=== PATIENT | female | born 1990 | race Caucasian/White ===

== ENCOUNTER 2016-06-03 14:38 | Emergency (ER) | payer OTHER ==
[~2016-06-03] VITALS: Wt 85.0 kg
[~2016-06-03 14:38] MED LIST: PREN1TAB13 PO
[2016-06-03] MEDS ORDERED: KETOROLAC 30 MG INJ IM STA (15:59)
[2016-06-03] MEDS ORDERED: ONDANSETRON (ODT) 4 MG TAB ODT STA (15:59)
[2016-06-03 16:33] LABS: URINE BLOOD (Dip) POC Negative (NEGATIVE)
--- NOTE | 2016-06-03 16:51 | RADRPT ---
PROCEDURE: US Pelvis. CLINICAL INDICATION: Pelvic pain. History of right ovarian cyst. TECHNIQUE: Multiple sonographic images of the pelvis were obtained utilizing a transabdominal and endovaginal technique. The images were reviewed on a PACS workstation. COMPARISON: None. FINDINGS: The uterus is visualized and measures 11.1 x 5.0 x 5.8 cm. The endometrial echo complex is normal an d measures 5.6 mm. There is trace free fluid in the cul-de-sac, likely physiologic. The right ovary has a normal echotexture and measures 5.3 x 3.4 x 4.8 cm. The left ovary has a normal echotexture a nd measures 3.7 x 3.1 x 4.8 cm. There is normal Doppler flow seen in both ovaries. No adnexal masses are noted. IMPRESSION: 1. Unremarkable pelvic ultrasound. RPTAT: [facility] Physician Sushila Date Time Electronically viewed and signed by Physician Sushila on 06/03/2016 16:51 SEVERINO/
[2016-06-03] MEDS ORDERED: NITR-58 PO (17:17)
[2016-06-03] MEDS ORDERED: PHEN-537 PO (17:19)
[2016-06-03] MEDS ORDERED: IBUP-1542 PO (17:24)
--- NOTE | 2016-06-03 17:24 | ERD ---
ER Documentation Chief Complaint Date/Time DATE: 06/03/16 TIME: 17:21 Chief Complaint RIGHT LOWER ABD PAIN, NAUSEA, ONSET 2 HRS HPI Patient is a 26-year-old female who presents the ED with right lower pelvic pain , nausea that started 3 hours ago. She states that she has a history of right ovarian cyst. She denies vomiting, fever, chills, abdominal pain, diarrhea or constipation. She also states that she has some dysuria. She denies back pain. Her last normal menstrual period was 05/11/2016. She denies abnormal vaginal discharge. She denies vaginal bleeding. She denies chest pain, cough, shortness of breath or difficulty breathing. Denies headache or dizziness. She denies leg pain or swelling. Denies sexual intercourse with multiple partners, in monogamous relationship. Denies use of OCPs. ROS All systems reviewed and are negative except as per history of present illness. Medications Home Meds Active Scripts Ibuprofen* (Motrin*) 600 Mg Tab, 600 MG PO Q6, #30 TAB Prov:KAVITA COTTRELL PA-C 06/03/16 Phenazopyridine Hcl* (Pyridium*) 100 Mg Tab, 100 MG PO TID Y for URINARY PAIN, # 8 TAB Prov:KAVITA COTTRELL PA-C 06/03/16 Nitrofurantoin Monohyd Macrocr* (Macrobid*) 100 Mg Capsr, 100 MG PO BID for 7 Days, CAP Prov:KAVITA COTTRELL PA-C 06/03/16 Reported Medications Vit-Iron Fumarate-FA ( Vitamins Tablet) 1 Tab Tablet, 1 TAB PO DAILY, TAB 07/11/15 Allergies Allergies: Coded Allergies: No Known Drug Allergies (Verified Allergy, Mild, 06/03/16) PMhx/Soc Medical and Surgical Hx: pt denies Medical Hx, pt denies Surgical Hx History of Surgery: No Anesthesia Reaction: No Hx Neurological Disorder: No Hx Respiratory Disorders: No Hx Cardiac Disorders: No Hx Psychiatric Problems: No Hx Miscellaneous Medical Probl: No Hx Alcohol Use: No Hx Substance Use: No Hx Tobacco Use: No Smoking Status: Never smoker Physical Exam Vitals Vital Signs Date Time Temp Pulse Resp B/P Pulse Ox O2 Delivery O2 Flow Rate FiO2 06/03/16 14:45 97.9 68 17 102/66 100 Physical Exam GENERAL: Well-developed, well-nourished female. Appears in mild acute distress. HEAD: Normocephalic, atraumatic. EYES: Pupils are equally reactive bilaterally. EOMs grossly intact. No conjunctival erythema. ENT: Moist mucous membranes. No uvula deviation. No kissing tonsils. No exudates. HEART: Regular rate and rhythm. No murmurs, rubs or gallops. ABDOMEN: No scars, ecchymosis or rashes noted. Soft, nontender, and nondistended. Positive bowel sounds in all four quadrants. No rebound tenderness , no guarding. (-) McBurneys point tenderness. No CVA tenderness. PELVIC: tenderness in right pelvic. no signs of infection. no rashes BACK: No midline tenderness. NEUROLOGIC: Alert and oriented. Moving all four extremities. 5/5 strength in all extremities. Normal speech. Steady gait. SKIN: Normal color. Warm and dry. No rashes or lesions. Capillary refill < 2 seconds Results 24 hrs Laboratory Tests Test 06/03/16 16:33 Bedside Urine Blood Negative Bedside Urine Glucose (UA) Negative Bedside Urine Ketones (LAB) Negative Bedside Urine Leukocyte Esterase (L 2+ Bedside Urine Nitrite (LAB) Negative Bedside Urine Protein (LAB) Negative Bedside Urine pH (LAB) 7.0 Current Medications Medications (Trade) Dose Ordered Sig/Trung Route PRN Reason Start Time Stop Time Status Last Admin Dose Admin Ondansetron HCl (Zofran Odt) 4 mg ONCE STAT ODT 06/03/16 15:59 06/03/16 16:01 DC 06/03/16 16:34 Ketorolac Tromethamine (Toradol) 30 mg ONCE STAT IM 06/03/16 15:59 06/03/16 16:01 DC 06/03/16 16:34 Procedures/MDM ER COURSE: I kept the patient and/or family informed of laboratory and diagnostic imaging results throughout the emergency room course. EKG, MONITORS, & DIAGNOSTIC IMAGING: [place] [id number] Radiology Main Line: [phone] DIAGNOSTIC IMAGING REPORT Patient: HAWK CAMARENA : 1990 Age: 26 Sex: F MR #: [id number] DOS: 01/08/17 1600 Ordering MD: KAVITA COTTRELL PA-C Location: [facility] Room/Bed: PROCEDURE: US Pelvis. CLINICAL INDICATION: Pelvic pain. History of right ovarian cyst. TECHNIQUE: Multiple sonographic images of the pelvis were obtained utilizing a transabdominal and endovaginal technique. The images were reviewed on a PACS workstation. COMPARISON: None. FINDINGS: The uterus is visualized and measures 11.1 x 5.0 x 5.8 cm. The endometrial echo complex is normal and measures 5.6 mm. There is trace free fluid in the cul-de- sac, likely physiologic. The right ovary has a normal echotexture and measures 5.3 x 3.4 x 4.8 cm. The left ovary has a normal echotexture and measures 3.7 x 3.1 x 4.8 cm. There is normal Doppler flow seen in both ovaries. No adnexal masses are noted. IMPRESSION: 1. Unremarkable pelvic ultrasound. RPTAT: [facility] Physician Sushila Date Time Electronically viewed and signed by Physician Sushila on 06/03/2016 16: 51 JH/ CC: KAVITA COTTRELL PA-C MEDICATIONS: Zofran, Toradol. Patient tolerated medication well with no adverse reaction. Patient seen improvement in symptoms. LAB INTERPRETATION: UA showed 2+ leukocytes and no hematuria. Urine test was negative. MEDICAL DECISION MAKING: This is a 26-year-old female who presents with pelvic pain and dysuria. Vital signs were reviewed. Patient is afebrile. Patient is not hypoxic. Patient is not toxic or ill-appearing. Patient has a UTI. Low suspicion for ovarian torsion, PID, tuboovarian abscess, ectopic , bowel obstruction, pyelonephritis, appendicitis, sepsis. Low suspicion for nephrolithiasis, septic stone or obstructive stone. I do not think a CT scan is warranted at this time or blood work as patient does not have focal point tenderness in her abdomen, is afebrile and her symptoms are likely related to UTI. DISCHARGE: At this time, patient is stable for discharge and outpatient management with no new complaints during the ER course. Patient was sent home with Macrobid, Pyridium, ibuprofen. Patient will be discharged home with instructions to recheck for new or worsening symptoms such as fever, nausea, weakness, LOC and to follow up with primary care in the next 1-2 days. Patient was advised to return to the ER for any new or worsening symptoms. Plan was discussed and patient and/or family understands and agrees. Home instructions were given. Departure Diagnosis: Primary Impression: UTI (urinary tract infection) Urinary tract infection type: site unspecified Hematuria presence: without hematuria Qualified Code: N39.0 - Urinary tract infection without hematuria, site unspecified Condition: Stable Patient Instructions: Understanding Urinary Tract Infections (UTIs) Additional Instructions: Call your primary care doctor TOMORROW for an appointment during the next 1-2 days.See the doctor sooner or return here if your condition worsens before your appointment time. KAVITA COTTRELL PA-C Jun 03, 2016 17:24 KAVITA COTTRELL PA-C Jun 03, 2016 17:24
== END 2016-06-03 17:26 | disposition home or self-care (01) ==
LOC: FTE 14:38
DX: N39.0 Urinary tract infection, site not specified (principal); E03.9 Hypothyroidism, unspecified
CPT/HCPCS: 76856; 81003; 96372; J1885; Z7502; Z7610

== ENCOUNTER 2016-12-05 14:40 | Emergency (ER) | payer OTHER ==
[~2016-12-05] VITALS: Ht 162.6 cm; Wt 85.0 kg
[~2016-12-05 14:40] MED LIST changes: +IBUP-1542 PO; +NITR-58 PO; +PHEN-537 PO
[2016-12-05 14:41] VITALS: Ht 162.6 cm; Wt 85.0 kg
[2016-12-05] MEDS ORDERED: ACETAMINOPHEN 500 MG TAB PO STA (15:12)
--- NOTE | 2016-12-05 17:19 | RADRPT ---
PROCEDURE: Right breast ultrasound. CLINICAL INDICATION: Right breast pain. There is a question of abscess. TECHNIQUE: Ultrasound of the whole right breast was performed with a high frequency linear transducer. The alcon ges were reviewed on a high-resolution PACS monitor. COMPARISON: None available. FINDINGS: There is no mass, cyst, or sonographic abnormality. The axilla is unremarkable. IMPRESSION: 1. No sonographic evidence of malignancy in the right breast. 2. No focal drainable collection or findings to suggest a source of the patient's symptoms. BIRADS 1: Negative. Follow-up as clinically warranted. Otherwise, the patient can begin routine [facility] screening mammography at age 39. A reminder letter will be sent to the patient for their next mammogram through our data base. RPTAT: GG .Bossman Cho MD, Date Time Electronically viewed and signed by .Bossman Cho MD, on 12/05/2016 17:18 .P/
[2016-12-05] MEDS ORDERED: ACET500C5 PO (17:23)
--- NOTE | 2016-12-05 17:34 | ERD ---
ER Documentation Chief Complaint Date/Time DATE: 12/05/16 TIME: 17:25 Chief Complaint rt breast pain HPI 26-year-old female is complaining of right breast pain 1 month. Patient stated the pain comes and goes, but she has it every day. Pain is 7 out of 10, Tylenol helps. She had a right breast ultrasound done about 2 months ago, was told that she has a breast lump. But no follow-up was done on it. Patient feels like the pain is increasing and her lump is increasing size. Now she started feeling pain on the left breast. She is not currently breast-feeding. LMP 11/23/2016. Denies fever or chills. Denies nipple discharge or inversion. Denies family history of breast cancer. ROS All systems reviewed and are negative except as per history of present illness. Medications Home Meds Active Scripts Acetaminophen* (Tylophen*) 500 Mg Capsule, 1 CAP PO Q6H Y for PAIN AND OR ELEVATED TEMP, #20 CAP Prov:MAYTE CASEY [employer] 12/05/16 Ibuprofen* (Motrin*) 600 Mg Tab, 600 MG PO Q6, #30 TAB Prov:KAVITA COTTRELLC 06/03/16 Phenazopyridine Hcl* (Pyridium*) 100 Mg Tab, 100 MG PO TID Y for URINARY PAIN, # 8 TAB Prov:KAVITA COTTRELLC 06/03/16 Nitrofurantoin Monohyd Macrocr* (Macrobid*) 100 Mg Capsr, 100 MG PO BID for 7 Days, CAP Prov:KAVITA COTTRELLC 06/03/16 Reported Medications Vit-Iron Fumarate-FA ( Vitamins Tablet) 1 Tab Tablet, 1 TAB PO DAILY, TAB 07/11/15 Allergies Allergies: Coded Allergies: No Known Drug Allergies (Verified Allergy, Mild, 06/03/16) PMhx/Soc Medical and Surgical Hx: pt denies Medical Hx History of Surgery: Yes (ovarian cyst removal and tubal ligation) Anesthesia Reaction: No Hx Neurological Disorder: No Hx Respiratory Disorders: No Hx Cardiac Disorders: No Hx Psychiatric Problems: No Hx Miscellaneous Medical Probl: No Hx Alcohol Use: No Hx Substance Use: No Hx Tobacco Use: No Smoking Status: Never smoker Physical Exam Vitals Vital Signs Date Time Temp Pulse Resp B/P Pulse Ox O2 Delivery O2 Flow Rate FiO2 12/05/16 14:41 98.1 74 18 113/75 98 Physical Exam General: Well-developed, well-nourished, conscious and coherent, in no distress Skin: Warm and dry without rash, good texture and turgor Head: Normocephalic without evidence of trauma Eyes: Sclera and conjunctivae normal; pupils equal, round, and reactive to light; extraocular movements are intact Neck: Supple without meningismus or adenopathy. Carotids are equal. Trachea midline. No bruits or JVD Chest: Normal AP diameter. Good expansion without retractions. Nontender. Lungs are clear to auscultate bilaterally with good tidal volume Heart: Regular rate and rhythm. No murmur, rub, or gallops heard Breast: Bilateral breasts polycystic on palpation. No mass or large cysts appreciated. Nontender Abdomen: Soft and nontender without masses, guarding, or rebound. Bowel sounds are active. No hepatosplenomegaly Extremities: Full range of motion. Good strength bilaterally. No clubbing, cyanosis, or edema. Peripheral pulses are intact. Sensation intact Neuro: Alert and oriented 4, GCS 15. Cranial nerves grossly intact. Motor and sensory exams nonfocal. Moves all extremities. Speech clear. Gait normal Results 24 hrs Current Medications Medications (Trade) Dose Ordered Sig/Trung Route PRN Reason Start Time Stop Time Status Last Admin Dose Admin Acetaminophen (Tylenol Tab) 500 mg ONCE STAT PO 12/05/16 15:12 12/05/16 15:13 DC 12/05/16 15:18 PROCEDURE: Right breast ultrasound. CLINICAL INDICATION: Right breast pain. There is a question of abscess. TECHNIQUE: Ultrasound of the whole right breast was performed with a high frequency linear transducer. The images were reviewed on a high-resolution PACS monitor. COMPARISON: None available. FINDINGS: There is no mass, cyst, or sonographic abnormality. The axilla is unremarkable. IMPRESSION: 1. No sonographic evidence of malignancy in the right breast. 2. No focal drainable collection or findings to suggest a source of the patient 's symptoms. BIRADS 1: Negative. Follow-up as clinically warranted. Otherwise, the patient can begin routine annual screening mammography at age 39. A reminder letter will be sent to the patient for their next mammogram through our data base. RPTAT: GG .Bossman Cho MD, MD Date Time Electronically viewed and signed by .Bossman Cho MD, MD on 12/05/2016 17:18 .P/ CC: MAYTE CASEY [employer] Procedures/MDM Well-appearing 26-year-old female presented ED with right breast pain 1 month. No breast mass or cysts or appreciated on breast exam. Ultrasound the right breast was obtained, also negative. Tylenol given to the patient in the ED for pain reduction. I suspect the "breast mass" found on her previous ultrasound was a large cyst. Educated patient that breast cyst can come and go and changing size based on menstrual cycles. I have very low suspicion for breast cancer or mastitis. Patient eloped before receiving discharge instructions. Departure Diagnosis: Primary Impression: Breast pain Condition: Good Patient Instructions: Breast Self-Exam (BSE) Referrals: DOCTOR,NOT ON STAFF (PCP) [facility] YOU HAVE RECEIVED A MEDICAL SCREENING EXAM AND THE RESULTS INDICATE THAT YOU DO NOT HAVE A CONDITION THAT REQUIRES URGENT TREATMENT IN THE EMERGENCY DEPARTMENT. FURTHER EVALUATION AND TREATMENT OF YOUR CONDITION CAN WAIT UNTIL YOU ARE SEEN IN YOUR DOCTORS OFFICE WITHIN THE NEXT 1-2 DAYS. IT IS YOUR RESPONSIBILITY TO MAKE AN APPOINTMENT FOR FOLOW-UP CARE. IF YOU HAVE A PRIMARY DOCTOR --you should call your primary doctor and schedule an appointment IF YOU DO NOT HAVE A PRIMARY DOCTOR YOU CAN CALL OUR PHYSICIAN REFERRAL HOTLINE AT IF YOU CAN NOT AFFORD TO SEE A PHYSICIAN YOU CAN CHOSE FROM THE FOLLOWING [facility] [id number] [facility]. [facility] [address] [facility]. [facility] [address] [facility]. [facility] [address] [facility]. [facility] [address] [facility]. [facility]. [address] Additional Instructions: Call your primary care doctor TOMORROW for an appointment during the next 1 WEEK.Tell the psychiatric secretary that you were referred from this facility.See the doctor sooner or return here if your condition worsens before your appointment time. MAYTE CASEY NP Dec 05, 2016 17:33
== END 2016-12-05 17:44 | disposition left against medical advice (07) ==
LOC: FTE 14:40
DX: N64.4 Mastodynia (principal)
CPT/HCPCS: 76642; Z7610

== ENCOUNTER 2018-04-12 10:41 | Emergency (ER) | END 2018-04-12 13:47 | disposition home or self-care (01) ==